=== PATIENT | male | born 1980 | race Caucasian/White ===

== ENCOUNTER 2020-07-29 15:32 | Emergency (ER) | payer OTHER ==
[~2020-07-29] VITALS: Ht 182.9 cm; Wt 97.5 kg
[2020-07-29] MEDS ORDERED: ZPAK PO (16:41)
[2020-07-29] MEDS ORDERED: PREDNISONE 20 M20 MG PO (16:41)
[2020-07-29 16:47] VITALS: BP 118/72
== END 2020-07-29 16:47 | disposition home or self-care (01) ==
LOC: M.ERS 15:32
DX: U07.1 COVID-19 (principal)